=== PATIENT | female | born 2005 | race Two or more races ===

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

== ENCOUNTER 2025-08-23 20:17 | Emergency (ER) | payer MEDICAID ==
[~2025-08-23] VITALS: Ht 160 cm; Wt 90.5 kg
[~2025-08-23 20:17] MED LIST: DICY10CA PO; PANT40TA2 PO
--- NOTE | 2025-08-23 20:34 | ED.PDOC ---
GI ASSESSMENT HPI Comments 20-year-old female who came to ER for pelvic pain. Patient states for the past few hours, she has been experiencing sharp suprapubic/pelvic pain associated nausea. Denies any urinary symptoms such as dysuria or hematuria. Patient unsure if she is or not Chief Complaint: Pelvic Pain Time Seen by MD: 20:34 Primary Care Provider: CHIQUI Bush Notes: Nurses Notes Allergies: Coded Allergies: NO KNOWN ALLERGIES (Unverified , 01/14/22) Home Meds Active Scripts Gabapentin (Once-Daily) (Gabapentin) 300 Mg Tab, 300 MG PO Q6HP PRN, #60 TAB Prov:EFRAIN FARRELL MD 08/24/25 Sulfamethoxazole W/Trimethopri (Bactrim Ds Tablet) 1 Tab Tb, 1 TAB PO BID for 7 Days, #14 TAB Prov:EFRAIN FARRELL MD 08/24/25 Dicyclomine Hcl (BENTYL CAPSULE) 10 Mg Cp, 1 CAP PO TID PRN for 7 Days, #90 CAP 11 Refills Prov:EFREM FELIX MD 06/23/24 Pantoprazole Sodium Sesquihydr (Protonix) 40 Mg Tab, 40 MG PO DAILY PRN for 14 Days, #14 TAB Prov:EFREM FELIX MD 06/23/24 Information Source: Patient Mode of Arrival: Ambulatory Past Medical History PAST MEDICAL HISTORY: Denies Surgical History: Denies all surgeries POWERHOUSE OPERATOR History: No Pertinent POWERHOUSE OPERATOR History Family History Family History: Unknown Social History Smoker: Non-Smoker Alcohol: Denies ETOH Use Drugs: Denies Drug Use Lives In: Home Constitutional: denies: chills, diaphoresis, fatigue, fever, malaise, sweats, weakness, others EENTM: denies: blurred vision, double vision, ear bleeding, ear discharge, ear drainage, ear pain, ear ringing, eye pain, eye redness, hearing loss, mouth pain, mouth swelling, nasal discharge, nose bleeding, nose congestion, nose pain, photophobia, tearing, throat pain, throat swelling, voice changes, others Respiratory: denies: cough, hemoptysis, orthopnea, SOB at rest, shortness of breath, SOB with excertion, stridor, wheezing, others Cardiovascular: denies: chest pain, dizzy spells, diaphoresis, Dyspnea on exertion, edema, irregular heart beat, left arm pain, lightheadedness, palpitations, PND, syncope, others Gastrointestinal: reports: abdominal pain, nausea; denies: abdomen distended, blood streaked bowels, constipated, diarrhea, dysphagia, difficulty swallowing, hematemesis, melena, poor appetite, poor fluid intake, rectal bleeding, rectal pain, vomiting, others Genitourinary: denies: abnormal vagina bleeding, burning, dyspareunia, dysuria, flank pain, frequency, hematuria, incontinence, pain, , vagina discharge, urgency, others Neurological: denies: dizziness, fainting, headache, left sided numbness, left sided weakness, numbness, paresthesia, pre-existing deficit, right sided numbness, right sided weakness, seizure, speech problems, tingling, tremors, weakness, others Musculoskeletal: denies: back pain, gout, joint pain, joint swelling, muscle pain, muscle stiffness, neck pain, others Integumetry: denies: bruises, change in color, change in hair/nails, dryness, laceration, lesions, lumps, rash, wounds, others Allergic/Immunocompromised: denies: Difficulty Healing, Frequent Infections, Hives, Itching, others Hematologic/Lymphatic: denies: anemia, blood clots, easy bleeding, easy bruising, swollen glands, others Endocrine: denies: excessive hunger, excessive sweating, excessive thirst, excessive urination, flushing, intolerance to cold, intolerance to heat, unexplained weight gain, unexplained weight loss, others Psychiatric: denies: anxiety, bipolar disorder, depression, hopeless, panic disorder, schizophrenia, sleepless, suicidal, others Physical Exam General Appearance: No Apparent Distress, Normal HEENT: Normal ENT Inspection, Pharynx Normal, TMs Normal Neck: Full Range of Motion, Non-Tender, Normal, Normal Inspection Respiratory: Chest Non-Tender, Lungs Clear, No Accessory Muscle Use, No Respiratory Distress, Normal Breath Sounds Cardiovascular: No Edema, No JVD, No Murmur, No Gallop, Normal Peripheral Pulses, Regular Rate/Rhythm Breast Exam: Deferred Gastrointestinal: No Organomegaly, Non Tender, No Pulsatile Mass, Normal Bowel Sounds, Soft Genitalia: Deferred Pelvic: Deferred Rectal: Deferred Extremities: No calf tenderness, Normal capillary refill, Normal inspection, Normal range of motion, Non-tender, No pedal edema Musculoskeletal : Apperance: Normal Neurologic: Alert, meat packer II-XII nml as Tested, No Motor Deficits, Normal Affect, Normal Mood, No Sensory Deficits Cerebellar Function: Normal Reflexes: Normal Skin: Dry, Normal Color, Warm Lymphatic: No Adenopathy Was a procedure done? Was a procedure done?: No GI differential Dx Differential Diagnosis: Diverticular disease, Gastritis/PUD, Gastroenteritis, Ovarian cyst/torsion, Pancreatitis, PID, UTI, X-Ray, Labs, Meds, VS Vital Signs Date Time Temp Pulse Resp B/P (MAP) Pulse Ox O2 Delivery O2 Flow Rate FiO2 08/24/25 03:24 98.5 86 18 127/74 (91) 100 98.5 08/24/25 03:23 98.5 08/23/25 23:23 87 18 146/76 08/23/25 22:53 91 17 130/67 08/23/25 22:52 98.7 91 17 130/67 (88) 99 98.7 08/23/25 21:21 97.8 96 18 138/85 (102) 99 97.8 08/23/25 20:18 98.3 96 16 147/99 100 98.3 Lab Test 08/23/25 21:52 08/23/25 21:51 08/23/25 20:44 Range/Units Urine Test Negative Negative Urine Color Light-red Yellow Urine Clarity Ex.turbid Clear Urine pH 6.5 5.0-9.0 Urine Specific [place] 1.018 1.001-1.035 Urine Protein 2+ H Negative Urine Ketones Negative Negative Urine Blood 3+ H Negative /uL Urine Nitrite Negative Negative Urine Bilirubin Negative Negative Urine Urobilinogen Normal Negative mg/dL Urine Leukocyte Esterase 2+ Negative /uL Urine RBC 00970 0 - 4 /hpf Urine Microscopic WBC 210 H 0-5 /HPF Urine Squamous Epithelial Cells None seen <5 /hpf Urine Bacteria None seen None Seen /hpf Urine Glucose Normal Normal mg/dL White Blood Count 9.9 4.4-10.8 10^3/uL Red Blood Count 5.15 4.0-5.20 10^6/uL Hemoglobin 14.5 12.2-16.2 g/dL Hematocrit 43.5 36.0-46.0 % Mean Corpuscular Volume 84.4 80.0-100.0 fL Mean Corpuscular Hemoglobin 28.1 28.0-32.0 pg Mean Corpuscular Hemoglobin Concent 33.3 32.0-36.0 g/dL Red Cell Distribution Width 15.7 H 11.8-14.3 % Platelet Count 343 140-450 10^3/uL Mean Platelet Volume 9.2 6.9-10.8 fL Neutrophils (%) (Auto) 66.5 37.0-80.0 % Lymphocytes (%) (Auto) 27.2 10.0-50.0 % Monocytes (%) (Auto) 5.1 0.0-12.0 % Eosinophils (%) (Auto) 0.7 0.0-7.0 % Basophils (%) (Auto) 0.5 0.0-2.0 % Neutrophils # (Auto) 6.6 1.6-8.6 10 ^3/uL Lymphocytes # (Auto) 2.7 0.4-5.4 10 ^3/uL Monocytes # (Auto) 0.5 0-1.3 10 ^3/uL Eosinophils # (Auto) 0.1 0-0.8 10 ^3/uL Basophils # (Auto) 0.1 0-0.2 10 ^3/uL Nucleated Red Blood Cells 0.1 % Sodium Level 140 136-145 mmol/L Potassium Level 3.6 3.5-5.1 mmol/L Chloride Level 104 98-107 mmol/L Carbon Dioxide Level 25 20-31 mmol/L Anion Gap 11 5-15 Blood Urea Nitrogen 10 9-23 mg/dL Creatinine 0.68 0.550-1.02 mg/dL Glomerular Filtration Rate Calc 128 >90 mL/min BUN/Creatinine Ratio 14.7 10.0-20.0 Serum Glucose 92 74-106 mg/dL Calcium Level 9.7 8.7-10.4 mg/dL Total Bilirubin 0.4 0.2-1.0 mg/dL Aspartate Amino Transferase (AST) 27 13-40 U/L Alanine Aminotransferase (ALT) 56 H 7-40 U/L Alkaline Phosphatase 121 H 46-116 U/L Total Protein 7.5 5.7-8.2 g/dL Albumin 5.0 H 3.2-4.8 g/dL Current Medications Medications (Trade) Dose Ordered Sig/Cait Route Start Time Stop Time Status Last Admin Ketorolac Tromethamine (Toradol Injection) 15 mg ONCE ONCE IV 08/23/25 20:45 08/23/25 20:46 DC 08/23/25 20:58 Morphine Sulfate 4 mg ONCE ONCE IV 08/23/25 22:15 08/23/25 22:16 DC 08/23/25 22:53 Ondansetron HCl (Zofran) 4 mg ONCE ONCE IV 08/23/25 22:15 08/23/25 22:16 DC 08/23/25 22:53 Ceftriaxone Sodium/Dextrose 50 ml @ 50 mls/hr ONCE ONCE IV 08/23/25 22:15 08/23/25 23:14 DC 08/23/25 22:53 Ibuprofen (Motrin Tablet) 600 mg ONCE ONCE PO 08/24/25 03:15 08/24/25 03:16 DC 08/24/25 03:23 COMPUTERIZED TOMOGRAPHY ABDOMEN AND PELVIS WITH CONTRAST REASON FOR EXAM: Left lower quadrant pain COMPARISON: None TECHNIQUE: The exam was performed on a Multidetector scanner. Spiral scans were acquired from the diaphragm to the symphysis pubis after administration of IV contrast. 2-D coronal and sagittal reformatted images were provided. Radiation optimization: All CT scans at this facility use at least one of these dose optimization techniques: Automated exposure control mA and/or kV adjustment per patient size (includes targeted exams where dose is matched to clinical indication) or iterative reconstruction. CONTRAST ADMINISTRATION: 100 mL omnipaque 300 intravenously RADIATION DOSE: CTDI: 15 mGy DLP: 918 mGy-cm FINDINGS: The visualized lung bases are grossly clear. There is no pleural effusion. There is no pericardial effusion. The spleen is not enlarged. The liver is normal in size and contour. The portal vein is patent. The gallbladder is not distended. No calcified gallstone is identified. The pancreas is grossly unremarkable. The adrenal glands appear normal. The kidneys enhance symmetrically. No solid renal mass is identified. There is no hydronephrosis of either kidney. There is no abdominal aortic aneurysm. No pathologic lymphadenopathy is identified by size criteria. The uterus and ovaries are within normal limits. There is a 1.6 cm right ovarian follicle. No free fluid is identified in the abdomen or pelvis. The urinary bladder is decompressed. The colonic stool burden is small. The appendix is normal. There is no distention of the small bowel. No acute osseous abnormality is identified. IMPRESSION: No gross abnormality is identified in the abdomen or pelvis. While within physiologic limits, the 1.6 cm right ovarian follicle may be a so urce of pain. Correlate clinically and with physical exam. Normal appendix. Time of 1ST Reevaluation: 20:32 Reevaluation 1ST: Unchanged Patient Education/Counseling: Diagnosis, Treatment Family Education/Counseling: No Family Present SEPSIS Sepsis Screen Date sepsis recognized/suspect: Aug 23, 2025 Time Sepsis recognized/suspect: 2020 Recent Procedure: No On Antibiotic Therapy: No Respiratory Rate >20: No Heart Rate >90: No Temp<36 C (96.8 F) or >38.3 C: No SBP <90 or MAP <65 mmHG: No New Acute Mental Status Change: No Is the patient on CPAP, BIPAP,: No Physician Orders Ct Ab Pel With Iv Con Only (08/23/25 20:34) Vital Signs Date Time Temp Pulse Resp B/P (MAP) Pulse Ox O2 Delivery O2 Flow Rate FiO2 08/24/25 03:24 98.5 86 18 127/74 (91) 100 98.5 08/24/25 03:23 98.5 08/23/25 23:23 87 18 146/76 08/23/25 22:53 91 17 130/67 08/23/25 22:52 98.7 91 17 130/67 (88) 99 98.7 08/23/25 21:21 97.8 96 18 138/85 (102) 99 97.8 08/23/25 20:18 98.3 96 16 147/99 100 98.3 Laboratory Tests Test 08/23/25 20:44 White Blood Count 9.9 10^3/uL (4.4-10.8) Medications Medications Dose Ordered Sig/Cait Route Start Time Stop Time Status Last Admin Dose Admin Ceftriaxone Sodium/Dextrose 50 ml @ 50 mls/hr ONCE ONCE IV 08/23/25 22:15 08/23/25 23:14 DC 08/23/25 22:53 Ibuprofen 600 mg ONCE ONCE PO 08/24/25 03:15 08/24/25 03:16 DC 08/24/25 03:23 Ketorolac Tromethamine 15 mg ONCE ONCE IV 08/23/25 20:45 08/23/25 20:46 DC 08/23/25 20:58 Morphine Sulfate 4 mg ONCE ONCE IV 08/23/25 22:15 08/23/25 22:16 DC 08/23/25 22:53 Ondansetron HCl 4 mg ONCE ONCE IV 08/23/25 22:15 08/23/25 22:16 DC 08/23/25 22:53 Departure 1 Departure Time of Disposition: 23:00 Impression: Primary Impression: Ovarian cyst Additional Impression: UTI (urinary tract infection) Disposition: HOME / SELF CARE / HOMELESS Condition: Stable e-Prescriptions Gabapentin (Once-Daily) (Gabapentin) 300 Mg Tab 300 MG PO Q6HP PRN, #60 TAB Prov: EFRAIN FARRELL MD 08/24/25 Sulfamethoxazole W/Trimethopri (Bactrim Ds Tablet) 1 Tab Tb 1 TAB PO BID for 7 Days, #14 TAB Prov: EFRAIN FARRELL MD 08/24/25 Discharged With: Self Critical Care Note Critical Care Time?: No Stability Stability form required: No Heart Score Heart Score: Heart Score Response (Comments) Value History N/A 0 EKG N/A 0 Age N/A 0 Risk Factors N/A 0 Troponin N/A 0 Total 0 I personally scribed for EFRAIN FARRELL MD ([email or web address]) on 08/23/25 at 20:34. Electronically submitted by Adal Eddy ([email or web address]). I personally scribed for EFRAIN FARRELL MD ([email or web address]) on 08/24/25 at 03:00. Electronically submitted by Adal Eddy ([email or web address]). EFRAIN FARRELL MD Aug 23, 2025 20:34
[2025-08-23 20:55] LABS: Hematocrit 43.5 % (36.0-46.0); Hemoglobin 14.5 g/dL (12.2-16.2); Mean Corpuscular Hemoglobin 28.1 pg (28.0-32.0); Mean Corpuscular Volume 84.4 fL (80.0-100.0); Nucleated Red Blood Cells % 0.1 %
[2025-08-23] MEDS: KETOROLAC TROMETH 30 MG/ML 1ML VIAL IV ONE (20:58)
[2025-08-23 21:08] LABS: Anion Gap 11 (5-15); BUN/Creatinine Ratio 14.7 (10.0-20.0); Blood Urea Nitrogen 10 mg/dL (9-23); Calcium 9.7 mg/dL (8.7-10.4); Carbon Dioxide 25 mmol/L (20-31); Chloride 104 mmol/L (98-107); Glucose 92 mg/dL (74-106); Potassium 3.6 mmol/L (3.5-5.1); Sodium 140 mmol/L (136-145); Total Protein 7.5 g/dL (5.7-8.2)
[2025-08-23 21:09] LABS: Bilirubin, Total 0.4 mg/dL (0.2-1.0)
[2025-08-23 21:10] LABS: Alanine Aminotransferase 56 U/L (7-40); Albumin 5.0 g/dL (3.2-4.8); Alkaline Phosphatase 121 U/L (46-116)
[2025-08-23 22:04] LABS: Urine Protein, UAD 2+ (Negative)
[2025-08-23] MEDS: IOHEXOL 300 MG/ML 100ML BOTTLE IJ ONE (22:21)
[2025-08-23] MEDS: ONDANSETRON HCL 4 MG/2 ML VIAL IV ONE (22:53)
[2025-08-23] MEDS: MORPHINE SULFATE 4 MG/ML SYR/VIAL IV ONE (22:53)
--- NOTE | 2025-08-24 02:24 | DVH ---
COMPUTERIZED TOMOGRAPHY ABDOMEN AND PELVIS WITH CONTRAST REASON FOR EXAM: Left lower quadrant pain COMPARISON: None TECHNIQUE: The exam was performed on a Multidetector scanner. Spiral scans were acquired from the diaphragm to the symphysis pubis after administration of IV contrast. 2-D coronal and sagittal reformatted images were provided. Radiation optimization: All CT scans at this facility use at least one of these dose optimization techniques: Automated exposure control mA and/or kV adjustment per patient size (includes targeted exams where dose is matched to clinical indication) or iterative reconstruction. CONTRAST ADMINISTRATION: 100 mL omnipaque 300 intravenously RADIATION DOSE: CTDI: 15 mGy DLP: 918 mGy-cm FINDINGS: The visualized lung bases are grossly clear. There is no pleural effusion. There is no pericardial effusion. The spleen is not enlarged. The liver is normal in size and contour. The portal vein is patent. The gallbladder is not distended. No calcified gallstone is identified. The pancreas is grossly unremarkable. The adrenal glands appear normal. The kidneys enhance symmetrically. No solid renal mass is identified. There is no hydronephrosis of either kidney. There is no abdominal aortic aneurysm. No pathologic lymphadenopathy is identified by size criteria. The uterus and ovaries are within normal limits. There is a 1.6 cm right ovarian follicle. No free fluid is identified in the abdomen or pelvis. The urinary bladder is decompressed. The colonic stool burden is small. The appendix is normal. There is no distention of the small bowel. No acute osseous abnormality is identified. IMPRESSION: No gross abnormality is identified in the abdomen or pelvis. While within physiologic limits, the 1.6 cm right ovarian follicle may be a source of pain. Correlate clinically and with physical exam. Normal appendix.
[2025-08-24] MEDS ORDERED: GABA300T4 PO (03:06)
[2025-08-24] MEDS ORDERED: BACDST PO (03:06)
[2025-08-24] MEDS: IBUPROFEN 600 MG TAB PO ONE (03:23)
[2025-08-24 03:24] VITALS: BP 127/74; PULSE 86; RESP 18; TEMP 98.5; O2SAT 100
== END 2025-08-24 03:26 | disposition home or self-care (01) ==
LOC: ER 20:17
DX: N83.209 Unspecified ovarian cyst, unspecified side (principal); N39.0 Urinary tract infection, site not specified
CPT/HCPCS: 36415; 74177; 80053; 81001; 81025; 85025; 96365; 96375; 99285; J0696; J1885; J2270; J2405; Q9967